=== PATIENT | female | born 1970 | race Caucasian/White ===

== ENCOUNTER → 2020-04-23 | Outpatient (CLI) | payer BC | LOC: KOH-I 09:45 | DX: R91.1 Solitary pulmonary nodule (principal); R91.8 Other nonspecific abnormal finding of lung field | CPT/HCPCS: 71250 ==

== ENCOUNTER → 2021-04-28 | Outpatient (CLI) | payer BC | LOC: KOH-I 13:23 | DX: R91.1 Solitary pulmonary nodule (principal) | CPT/HCPCS: 71250 ==